=== PATIENT | female | born 2000 | race African-American/Black ===

== ENCOUNTER 2025-02-10 15:44 | Emergency (ER) | payer OTHER ==
[2025-02-10 16:58] LABS: ALT (SGPT) 10 U/L (Less than 34); AST (SGOT) 26 U/L (11-34); Albumin 4.3 g/dL (3.1-4.5); Alkaline Phosphatase 59 U/L (40-110); Anion Gap 14 mmol/L (10-20); BUN (Urea Nitrogen) 12 mg/dL (7.0-18.7); Bilirubin, Total 0.4 mg/dL (0.3-1.2); Calc. Creatinine Clearance 0 mL/min (70-130); Calcium 9.5 mg/dL (7.8-10.44); Carbon Dioxide 20 mmol/L (22-29); Chloride 108 mmol/L (98-107); Globulin 3.8 g/dL (2.4-3.5); Glucose 94 mg/dL (70-105); Potassium 4.5 mmol/L (3.5-5.1); Sodium 137 mmol/L (136-145)
[2025-02-10] MEDS ORDERED: Famotidine 20 MG TAB ONE (17:11)
== END 2025-02-10 17:15 | disposition home or self-care (01) ==
LOC: ERS 15:44
DX: K21.9 Gastro-esophageal reflux disease without esophagitis (principal); Z86.73 Personal history of transient ischemic attack (TIA), and cerebral infarction without residual deficits
CPT/HCPCS: 71045; 80053; 84484; 93005